=== PATIENT | male | born 1960 | race Two or more races ===

== ENCOUNTER 2021-12-26 01:25 | Inpatient (IN) | payer OTHER ==
[~2021-12-26] VITALS: Ht 175.3 cm; Wt 78.9 kg
--- NOTE | 2021-12-26 01:55 | NUR ---
ALONSO FROM [facility] C/O FEVER, COUGH TESTED COVID + TODAY. PT A/OX2; HEBREW SPEAKING. TOLERATING R/A WELL; RESP EVEN AND NONLABORED. CONNECTED PT TO POX AND MONITOR.
--- NOTE | 2021-12-26 02:17 | NUR ---
EMT AT PT'S BEDSIDE FOR EKG
--- NOTE | 2021-12-26 02:17 | NUR ---
CRISTELA #18G S/L BLOOD AND COVID COLLECTED AND SENT TO LAB
[2021-12-26 02:28] LABS: BASOPHILS % (AUTO) 0.2 % (0.0-2.0); EOSINOPHILS % (AUTO) 0.2 % (0.0-6.0); HEMATOCRIT 38 % (39-51); LYMPHOCYTES % (AUTO) 20.3 % (20.0-44.0); MEAN CORPUSCULAR HGB CONC 34 g/dl (31.0-36.0); MEAN CORPUSCULAR VOLUME 92 fL (80-96); MONOCYTES # (AUTO) 0.7 K/uL (0.1-1.30); MONOCYTES % (AUTO) 14.1 % (2.0-12.0); NEUTROPHILS # (AUTO) 3.1 K/uL (1.8-8.9); NEUTROPHILS % (AUTO) 65.2 % (43.0-81.0); PLATELET COUNT (AUTO) 128 K/uL (150-450); RED BLOOD CELL COUNT(AUTO) 4.13 MIL/uL (4.5-6.0); WHITE BLOOD COUNT (AUTO) 4.8 K/uL (4.3-11.0)
[2021-12-26 02:46] LABS: ALANINE AMINOTRANSFERASE 27 U/L (12-78); ALBUMIN 3.6 g/dL (3.4-5.0); ALKALINE PHOSPHATASE 60 U/L (46-116); ASPARTATE AMINOTRANSFERASE 16 U/L (15-37); BILIRUBIN,DIRECT 0.2 mg/dL (0.0-0.2); BILIRUBIN,TOTAL 0.9 mg/dL (0.2-1.0); CALCIUM, SERUM 8.4 mg/dL (8.5-10.1); CARBON DIOXIDE 29 mmol/L (21-32); CHLORIDE 105 mmol/L (98-107); CREATININE 0.8 mg/dL (0.6-1.3); GLUCOSE 98 mg/dL (74-106); POTASSIUM 3.5 mmol/L (3.5-5.1); SODIUM SERUM 139 mmol/L (136-145); TOTAL PROTEIN, SERUM 7.5 g/dL (6.4-8.2); UREA NITROGEN, BLOOD 9 mg/dL (7-18)
--- NOTE | 2021-12-26 02:48 | NUR ---
SHUTTLE ROUTE VEHICLE OPERATOR AT PT'S BEDSIDE
--- NOTE | 2021-12-26 02:58 | NUR ---
CRITICAL: COVID POSITIVE
--- NOTE | 2021-12-26 03:41 | NUR ---
DR. SUMMERS [facility]FF[facility]NA[facility] REGARDING ADMISSION
[2021-12-26] MEDS ORDERED: ACETAMINOPHEN 325 MG TABLET PO PRN (04:00)
[2021-12-26] MEDS ORDERED: ALBUTEROL SULFATE 8 GM HFA.AER.AD IH PRN (04:00)
[2021-12-26] MEDS ORDERED: DOCU-141 PO (09:16)
[2021-12-26] MEDS ORDERED: MULT-439 PO (09:16)
[2021-12-26] MEDS ORDERED: FOLI0.4T6 PO (09:16)
[2021-12-26] MEDS ORDERED: DIVA-78 PO (09:16)
[2021-12-26] MEDS ORDERED: THIA100T74 PO (09:16)
[2021-12-26] MEDS ORDERED: QUET25TA PO (09:16)
[2021-12-26] MEDS ORDERED: ENOXAPARIN SODIUM 40 MG/0.4 ML DISP.SYRIN SQ SCH (12:30)
[2021-12-26] MEDS ORDERED: LORAZEPAM INJ 2 MG/ML VIAL ONE (12:39)
--- NOTE | 2021-12-26 12:39 | NUR ---
VERBAL ORDER OF 1MG ATIVAN FROM DR BROCK, NOTED AND CARRIED OUT
[2021-12-26] MEDS ORDERED: LORAZEPAM INJ 2 MG/ML VIAL IV ONE ×2 (13:00→14:30)
[2021-12-26] MEDS ORDERED: LORAZEPAM INJ 2 MG/ML VIAL IV PRN (13:00)
--- NOTE | 2021-12-26 13:53 | NUR ---
BED 108
--- NOTE | 2021-12-26 13:59 | NUR ---
REPORT GIVEN TO MARTIN LIU OF TELE UNIT
--- NOTE | 2021-12-26 14:00 | NUR ---
transferred to bed 108 in stable condition
--- NOTE | 2021-12-26 14:30 | NUR ---
Patient was transferred to the telemetry department from the ER with primary diagnosis of COVID positive . Patient is very agitated , confused , and non responsive not in Thai not in Yi, on his was from ER pulled out his IV line .Place the new IV access of the JANNA.Patient tried to get up and get out of the bed , high risk for fall . Patient is on room air , breathing non labored , O 2 sat 98 % , texted to the doctor for the request for the restrain, respond is pending
--- NOTE | 2021-12-26 14:47 | NUR ---
patient very anxious pull iv oput and tryinget out of bed ativan 1mg given ivp per md,restraint initiated.
--- NOTE | 2021-12-26 14:59 | NUR ---
addendum ativan wasted not given pt. had dose ativan in ER.
--- NOTE | 2021-12-26 15:00 | NUR ---
CLARIFIED WITH T DR. LOCK PT. STILL ANXIOUS WITH NEW ORDER FOR ZYPREXA AND OK RESTRAINT.
[2021-12-26] MEDS: ENOXAPARIN SODIUM 40 MG/0.4 ML DISP.SYRIN SQ SCH (16:56)
[2021-12-26] MEDS ORDERED: OLANZAPINE 10 MG VIAL IM ONE ×2 (17:00→20:00)
--- NOTE | 2021-12-26 18:26 | NUR ---
RN closing note PATIENT IS ALERT , ORIENTED BY NAME ONLY , CONFUSED, CURRENTLY ON SOFT RESTRAIN , BOTH WRISTS .PATIENT IS ON ROOM AIR , O2 SAT 98 % , TOLERATING WELL , HAS IV ACCESS ON RIGHT FOREARM 22 G, HIGH RISK FOR FALL.BED IS AT LOWEST POSITION , BED SIDE RAILS ARE UP , CALL LIGHT WITHIN REACH.
--- NOTE | 2021-12-26 19:42 | NUR ---
RN NOTE RECEIVED PATIENT IN BED, AOX1. CONFUSED. TALKING TO SELF. BREATHING EVEN AND UNLABORED. ON ROOM AIR. HOB ELEVATED 30 DEGREES. ON TELE MONITORING. SKIN WARM AND DRY TO TOUCH. NOTED WITH RIGHT FOREARM 22G PIV. NO IV INFUSING. NOTED WITH LEFT WRIST BILATERAL SOFT WRIST RESTRAINTS. REMOVED THERE IS NO ORDER. CAPILLARY REFILL WNL. BILATERAL RADIAL PULSES WNL. PATIENT IS CALM AT THIS TIME. PROVIDED WITH URINAL. BED LOW, IN LOCKED POSITION. CALL LIGHT WITHIN REACH. WILL CONTINUE TO MONITOR.
[2021-12-26 20:00] VITALS: BP 126/81
--- NOTE | 2021-12-26 21:41 | NUR ---
RN NOTE Patient confused. attempting to leave room. Combative and hitting staff. Unable to follow commands. Patient was safely returned to bed. administered scheduled one time order of zyprexa. patient with order of bilateral soft wrist restraints. Applied on. bilateral radial pulses palpable. decreased room stimuli. provided with blanket. provided patient with fluids for hydration. hob elevated 30 degrees. bed low, in locked position. call light within reach.
[2021-12-27 04:00] VITALS: BP 105/70
[2021-12-27 07:00] LABS: BASOPHILS % (AUTO) 0.6 % (0.0-2.0); HEMATOCRIT 40 % (39-51); HEMOGLOBIN 13.8 g/dL (13.5-17.5); LYMPHOCYTES # (AUTO) 1.5 K/uL (0.8-4.8); LYMPHOCYTES % (AUTO) 20.8 % (20.0-44.0); MEAN CORPUSCULAR HGB CONC 35 g/dl (31.0-36.0); MEAN CORPUSCULAR VOLUME 92 fL (80-96); MONOCYTES # (AUTO) 1.3 K/uL (0.1-1.30); NEUTROPHILS # (AUTO) 4.4 K/uL (1.8-8.9); NEUTROPHILS % (AUTO) 60.6 % (43.0-81.0); PLATELET COUNT (AUTO) 125 K/uL (150-450); RED BLOOD CELL COUNT(AUTO) 4.34 MIL/uL (4.5-6.0); WHITE BLOOD COUNT (AUTO) 7.3 K/uL (4.3-11.0)
[2021-12-27 08:00] VITALS: BP 110/70
[2021-12-27 08:31] LABS: ALBUMIN 3.6 g/dL (3.4-5.0); BILIRUBIN,TOTAL 1.4 mg/dL (0.2-1.0); CALCIUM, SERUM 8.3 mg/dL (8.5-10.1); CREATININE 0.9 mg/dL (0.6-1.3); TOTAL PROTEIN, SERUM 7.8 g/dL (6.4-8.2)
[2021-12-27 08:34] LABS: POTASSIUM 3.3 mmol/L (3.5-5.1)
[2021-12-27] MEDS: DIVALPROEX SODIUM 500 MG TABLET.DR PO SCH ×2 (09:00→09:24)
[2021-12-27 09:17] LABS: LYMPHOCYTES % (MANUAL) 26 % (16-48); MONOCYTES % (MANUAL) 13 % (0-11.0); NEUTROPHILS % (MANUAL) 61 (42-76)
[2021-12-27] MEDS: QUETIAPINE FUMARATE 25 MG TABLET PO SCH ×2 (09:25→16:22)
[2021-12-27] MEDS: DOCUSATE SODIUM 100 MG CAPSULE PO SCH (09:25)
[2021-12-27] MEDS: THIAMINE HCL 100 MG TABLET PO SCH (09:25)
--- NOTE | 2021-12-27 09:45 | NUR ---
PATIENT IS VERY COMBATIVE/UNCOOPERATIVE AND TRYING TO GET UP UNASSISTED; CLOSE MONITORING RENDERED BY RAILROAD BRAKE OPERATOR FOR PATIENT'S SAFETY AND TO PREVENT INJURY. CHARGE NURSE AWARE. WILL CONTINUE TO MONITOR PT.
[2021-12-27] MEDS ORDERED: POTASSIUM CHLORIDE 20 MEQ TAB.PRT.SR PO SCH (11:00)
--- NOTE | 2021-12-27 11:05 | NUR ---
PATIENT REMAINS COMBATIVE/UNCOOPERATIVE AND ABLE TO REMOVE SOFT RESTRAINT ON BOTH WRIST ; GETTING UP UNASSISTED; CLOSE MONITORING RENDERED BY COUNT ROOM CLERK FOR PATIENT'S SAFETY AND TO PREVENT INJURY. CHARGE NURSE AWARE. WILL CONTINUE TO MONITOR PT.
[2021-12-27 12:00] VITALS: BP 112/70
--- NOTE | 2021-12-27 12:45 | NUR ---
PATIENT REMAINS COMBATIVE/UNCOOPERATIVE AND ABLE TO REMOVE SOFT RESTRAINT ON BOTH WRIST AGAIN; GETTING UP UNASSISTED; CLOSE MONITORING RENDERED BY GYROSCOPE REPAIRER FOR PATIENT'S SAFETY AND TO PREVENT INJURY. CHARGE NURSE AWARE. DR RODRIGUEZ AT THE UNIT AND TALKED TO PATIENT. DR RODRIGUEZ WITH NEW ORDER OF ZYPREXA I.M X 1. WILL CONTINUE TO MONITOR PT.
[2021-12-27] MEDS ORDERED: OLANZAPINE 10 MG VIAL IM ONE ×2 (12:50→22:00)
--- NOTE | 2021-12-27 13:40 | NUR ---
PATIENT REMAINS COMBATIVE/UNCOOPERATIVE AND ABLE TO REMOVE SOFT RESTRAINT ON BOTH WRIST AGAIN; GETTING UP UNASSISTED; CLOSE MONITORING RENDERED BY GEAR CODING MACHINE OPERATOR FOR PATIENT'S SAFETY AND TO PREVENT INJURY. CHARGE NURSE-AMBROCIO AND RN TRAINER-JESSICA MADE AWARE THAT PATIENT NEEDS 1 ON 1 SITTER, NO SITTER PROVIDED AT THIS TIME. WILL CONTINUE TO MONITOR PT.
--- NOTE | 2021-12-27 14:36 | NUR ---
DR. RODRIGUEZ AT THE UNIT AND WAS NOTIFIED THAT PT. REMAINS ANXIOUS/UNCOOPERATIVE/COMBATIVE. NO NEW ORDER MADE.
[2021-12-27 16:00] VITALS: BP 118/56
[2021-12-27] MEDS: ENOXAPARIN SODIUM 40 MG/0.4 ML DISP.SYRIN SQ SCH (16:23)
--- NOTE | 2021-12-27 19:02 | NUR ---
PATIENT WAS MONITORED CLOSELY DURING THE SHIFT BY FIRMWARE DEVELOPER TO PREVENT INJURY. ENDORSED TO NEXT SHIFT RN
--- NOTE | 2021-12-27 19:30 | NUR ---
PRINTED CIRCUIT BOARD DRAFTER NOTES RECEIVED ON BED SLEEPING,BREATHING NON LABORED,ON BILATERAL SOFT WRIST RESTRAINTS FOR SAFETY,PATIENT VERY CONFUSED,COMBATIVE AT TIME,TRYING TO GET OUT OF BED..ISOLATION PRECAUTION FOR COVID POSITIVE.WILL CONTINUE TO MONITOR.
--- NOTE | 2021-12-27 21:00 | NUR ---
EVENT MANAGEMENT CONSULTANT NOTES VERY RESTLESS,SITING ON EDGE OF BED,TALKING IN CENTRAL AFRICAN.WAS PUT BACK TO BED AND RESTRAINTS CHECKED FOR TIGHTNESS,WITH GOOD HAND CIRCULATION.
--- NOTE | 2021-12-27 21:45 | NUR ---
IT APPLICATION SUPPORT ANALYST NOTES HOSPITALIST BOB MADE AWARE OF PATIENT BEING RESTLESS,WITH ORDER FOR XYPREXA 5MG IV X1 DOSE AND PSYCHE CONSULT IN THE MORNING,NOTED.
[2021-12-27 22:02] VITALS: BP 121/74
--- NOTE | 2021-12-27 23:02 | NUR ---
COMMUNICATION MANAGER NOTES BECOMING RESTLESS,ZYPREXA 5MGMIM GIVEN ON LEFT DELTOID ORDERED.WILL CONTINUE TO MONITOR.
[2021-12-28] VITALS: BP 104/55
--- NOTE | 2021-12-28 06:17 | NUR ---
MS RN NOTES ABLE TO SLEEP 5 HOURS AFTER IM ZYPREXA.MORNING CARE RENDERED,ABLE TO FOLLOW INSTRUCTIONS,FALL RISK,BILATERAL SOFT WRIST RESTRAINTS IN USED,BED ALARM,NO SOB NOTED.AFEBRILE.IN NO ACUTE DISTRESS.
--- NOTE | 2021-12-28 07:30 | NUR ---
MS RN OPENING NOTES: RECEIVED PT IN BED ASLEEP, EASILY AROUSED WITH STIMULI. A/O X1. NO SOB OR CARDIAC DISTRESS NOTED. ON ROOM AIR AND SATURATING WELL @98%. IV ACCESS NOTED ON RFA G#20 PATENT, INTACT AND SALINE LOCKED. NOTED WITH BILATERAL SOFT WRIST RESTRAINT, NOTED HANDS WITH GOOD CIRCULATION. SAFETY PRECAUTIONS MAINTAINED: BED IN LOWEST LOCKED POSITION, SIDE RAILS UP X2. CALL LIGHT IN EASY REACH FOR HELP. WILL MONITOR PT'S BEHAVIOR AND WILL REPORT TO MD FOR ANY SIGNIFICANT CHANGES. Addendum: 12/28/21 at 0748 by YEN AYALA RN INCORRECT PATIENT. PLEASE DISREGARD.
--- NOTE | 2021-12-28 07:46 | NUR ---
RN CLOSING NOTES REPORT GIVEN TO DAY NURSE FOR VIKA. PT STABLE. NO S/SX OF DISTRESS NOTED. Addendum: 12/28/21 at 0748 by YEN AYALA RN INCORRECT PATIENT. PLEASE DISREGARD.
--- NOTE | 2021-12-28 07:50 | NUR ---
MS RN OPENING NOTES: RECEIVED PT IN BED ASLEEP, EASILY AROUSED WITH STIMULI. A/O X1. NO SOB OR CARDIAC DISTRESS NOTED. ON ROOM AIR AND SATURATING WELL @98%. IV ACCESS NOTED ON RFA G#20 PATENT, INTACT AND SALINE LOCKED. NOTED WITH BILATERAL SOFT WRIST RESTRAINT, NOTED HANDS WITH GOOD CIRCULATION. SAFETY PRECAUTIONS MAINTAINED: BED IN LOWEST LOCKED POSITION, SIDE RAILS UP X2. CALL LIGHT IN EASY REACH FOR HELP. WILL MONITOR PT'S BEHAVIOR AND WILL REPORT TO MD FOR ANY SIGNIFICANT CHANGES.
[2021-12-28] MEDS: DIVALPROEX SODIUM 500 MG TABLET.DR PO SCH (09:17)
[2021-12-28] MEDS: THIAMINE HCL 100 MG TABLET PO SCH (09:17)
[2021-12-28] MEDS: QUETIAPINE FUMARATE 25 MG TABLET PO SCH (09:17)
[2021-12-28] MEDS: DOCUSATE SODIUM 100 MG CAPSULE PO SCH (09:17)
--- NOTE | 2021-12-28 11:40 | NUR ---
DISCHARGE NOTES: DISCHARGED PT TO [facility] TRANSFERRED BY [facility] ACCOMPANIED BY 2 MAPLE SYRUP MAKER. PATIENT ALERT [place] LEONEAN SPEAKING VERY CONFUSED. NO SOB OR CARDIAC DISTRESS NOTED. REMOVED IV ACCESS ON RIGHT FOREARM SECURED WITH TAPE. PT CALM AND COOPERATIVE AT THIS TIME. DISCHARGE INSTRUCTIONS/PACKET GIVEN TO PARAMEDICS, SIGNED. BELONGINGS LIST SIGNED ALL BELONGINGS CARRIED WITH THE RESIDENT. REPORT GIVEN TO ALEXA SERRATO. SKIN IS INTACT. IDENTIFICATION BAND IN PLACE. PATIENT LEFT THE FACILITY STABLE.
== END 2021-12-28 12:23 | DRG 137 ==
LOC: ER 01:44 → TRANSITION 04:42 → TELE1 13:53 → MEDSG1 16:18
PROVIDERS: ADMIT Nurse Practitioner Acute Care; ATTEND Nurse Practitioner Acute Care
DX: U07.1 COVID-19 (principal); G93.41 Metabolic encephalopathy; F03.90 Unspecified dementia, unspecified severity, without behavioral disturbance, psychotic disturbance, mood disturbance, and anxiety; F39 Unspecified mood [affective] disorder; F09 Unspecified mental disorder due to known physiological condition; J20.8 Acute bronchitis due to other specified organisms
CPT/HCPCS: 36415; 71045-TC; 80048-TC; 80053-TC; 80076-TC; 80164-TC; 83605-TC; 84484-TC; 85025-TC; 85378-TC; 86140; 86140-TC; 87040-TC; 87081-TC; C9803; G0378; J1650; J2060; J3490